=== PATIENT | female | born 1995 | race Hispanic/Latino ===

== ENCOUNTER 2020-01-11 21:30 | Emergency (ER) | payer OTHER ==
[2020-01-11 21:51] LABS: BASOPHILS % (AUTO) 0.4 % (0.0-5.0); EOSINOPHILS % (AUTO) 0.5 % (0.0-8.0); HEMATOCRIT 39.5 % (36-48); LYMPHOCYTES % (AUTO) 21.8 % (21.0-51.0); MEAN CORPUSCULAR HEMOGLOBIN 28.4 pg (27.0-33.0); MEAN CORPUSCULAR HGB CONC 33.7 g/dL (32.0-36.0); MEAN CORPUSCULAR VOLUME 84.2 fL (79-99); MONOCYTES % (AUTO) 6.9 % (3.0-13.0); NEUTROPHILS % (AUTO) 70.1 % (40.0-77.0); PLATELET COUNT (AUTO) 254 K/uL (130-400); RED BLOOD CELL COUNT(AUTO) 4.69 MIL/uL (4.00-5.50); RED CELL DISTRIBUTION WIDTH 13.2 % (11.0-15.5); WHITE BLOOD COUNT (AUTO) 9.3 K/uL (4.8-10.8)
[2020-01-11 21:55] LABS: BILIRUBIN,URINE Negative (NEGATIVE); COLOR,URINE Yellow (YELLOW); GLUCOSE, URINE (UA) Negative (NEGATIVE); KETONES,URINE 15 mg/dL (NEGATIVE); LEUKOCYTE ESTERASE ,URINE Trace (NEGATIVE); NITRATE,URINE Negative (NEGATIVE); OCCULT BLOOD,URINE Negative (NEGATIVE); PROTEIN,URINE Trace mg/dL (NEGATIVE)
[2020-01-11 21:57] LABS: APPEARANCE,URINE CLOUDY (CLEAR)
[2020-01-11 22:03] LABS: AMPHET/METH SCREEN,URINE NEGATIVE (NEGATIVE); BARBITURATE SCREEN, URINE NEGATIVE (NEGATIVE); BENZODIAZEPINES SCREEN,URINE NEGATIVE (NEGATIVE); CANNABINOID SCREEN,URINE POSITIVE (NEGATIVE); COCAINE SCREEN,URINE POSITIVE (NEGATIVE); OPIATE SCREEN,URINE NEGATIVE (NEGATIVE); PHENCYCLIDINE SCREEN,URINE NEGATIVE (NEGATIVE)
[2020-01-11 22:04] LABS: INR 1.01 (0.85-1.15); PARTIAL THROMBOPLASTIN TIME 25.2 SEC (26.3-35.5); PROTHROMBIN TIME 10.9 SEC (9.6-11.6)
[2020-01-11 22:09] LABS: HCG,QUAL RESULT NEGATIVE (NEGATIVE)
[2020-01-11 22:11] LABS: BACTERIA,URINE Few /HPF (None Seen); RBC,URINE None Seen /HPF (0-1)
[2020-01-11 22:12] LABS: MUCUS,URINE Few LPF (None Seen)
[2020-01-11 22:16] LABS: CREATININE 0.8 mg/dL (0.5-1.5); POTASSIUM 4.9 mmol/L (3.5-5.1)
[2020-01-11 22:21] LABS: BILIRUBIN,TOTAL 0.8 mg/dL (0.2-1.0); TOTAL PROTEIN, SERUM 8.9 g/dL (6.0-8.3)
[2020-01-11] MEDS ORDERED: SODIUM CHLORIDE 0.9% 1000ML 1,000 ML IV ONE (23:50)
[2020-01-11] MEDS ORDERED: LORAZEPAM 0.5 MG TABLET ONE (23:51)
[2020-01-11] MEDS ORDERED: ASPIRIN 325 MG TABLET ONE (23:51)
== END 2020-01-12 02:16 | disposition home or self-care (01) ==
LOC: EDH 21:30
DX: R07.89 Other chest pain (principal); E86.0 Dehydration; F14.10 Cocaine abuse, uncomplicated
CPT/HCPCS: 36415; 71045; 80053; 80305; 81001; 81025; 84484; 85025; 85610; 85730; 93005; 96360; 99285; J7030